=== PATIENT | female | born 1960 | race Caucasian/White ===

== ENCOUNTER 2017-01-18 19:37 | Inpatient (IN) | payer MEDICAID ==
[2017-01-18 21:20] LABS: RBC URINE 1 /hpf (0-3); URINE BILIRUBIN NEGATIVE (NEGATIVE); URINE BLOOD NEGATIVE (NEGATIVE); URINE COLOR Yellow (YELLOW); URINE GLUCOSE (UA) NORMAL (Normal); URINE KETONE NEGATIVE (NEGATIVE); URINE LEUKOCYTE ESTERASE 1+ Leu/uL (Negative); URINE PROTEIN NEGATIVE (NEGATIVE); URINE UROBILINOGEN NORMAL mg/dL (0.2-1.0); WBC URINE 8 /hpf (0-5)
[2017-01-18 22:50] LABS: BASO # 0.1 K/uL (0.0-0.2); BASO % 0.9 % (0.0-2.0); EOS # 0.4 K/uL (0.0-0.7); EOS % 5.4 % (0.0-4.0); HEMATOCRIT 37.3 % (34.0-47.0); LYMPH # 3.9 K/uL (1.0-4.3); LYMPH % 52.8 % (20.0-40.0); MEAN CELL VOLUME 92.6 fL (81.0-99.0); MEAN CORPUSCULAR HEMOGLOBIN 30.8 pg (27.0-31.0); MEAN CORPUSCULAR HGB CONC 33.2 g/dL (33.0-37.0); MEAN PLATELET VOLUME 8.2 fL (7.2-11.7); MONO # 0.7 K/uL (0.0-0.8); MONO % 9.9 % (0.0-10.0); WHITE BLOOD COUNT 7.4 K/uL (4.8-10.8)
[2017-01-18 23:06] LABS: CHLORIDE 99 mmol/L (98-107)
[2017-01-18 23:07] LABS: POTASSIUM 3.8 mmol/L (3.6-5.2); SODIUM 141 mmol/L (132-148)
[2017-01-18 23:09] LABS: ALB/GLOB RATIO 1.4 (1.0-2.1); ALKALINE PHOSPHATASE 56 U/L (38-126); ALT/SGPT 57 U/L (9-52); AST/SGOT 49 U/L (14-36); BILIRUBIN,TOTAL 0.3 mg/dL (0.2-1.3); BLOOD UREA NITROGEN 17 mg/dL (7-17); CARBON DIOXIDE 27 mmol/L (22-30); GFR AFRICAN-AMERICAN > 60; GLUCOSE,RANDOM 156 mg/dL (65-105); TOTAL PROTEIN 7.9 g/dL (6.3-8.3)
[2017-01-18 23:10] LABS: ALCOHOL SERUM < 10 mg/dl (0-10)
--- NOTE | 2017-01-18 23:56 | C.PDOC ---
History Of Present Illness 56 year old patient presents to the ED for detox from Percocet. Patient is pre- screened. Patient admits to last use being prior to arrival. Patient denies any chest pain, shortness of breath, vomiting, abdominal pain, suicidal or homicidal ideation. Time Seen by Provider: 01/18/17 22:22 Chief Complaint (Nursing): Substance Abuse History Per: Patient History/Exam Limitations: other Onset/Duration Of Symptoms: Other Suicide/Self Injury Attempted (Context): None Modifying Factor(s): Narcotics Severity: None Pain Scale Rating Of: 0 Recent travel outside of the [place]: No Past Medical History Reviewed: Historical Data, Nursing Documentation, Vital Signs Vital Signs: Last Vital Signs Temp 98 F 01/19/17 08:37 Pulse 95 H 01/19/17 08:37 Resp 18 01/19/17 08:37 BP 107/74 01/19/17 08:37 Pulse Ox 95 01/19/17 08:37 - Medical History PMH: Anxiety, Hypothyroidism - [facility] Procedures DETOXIFICATION SERVICES FOR SUBSTANCE ABUSE TREATMENT (01/18/17) GROUP TOEING STOCKINGS FOR SUBSTANCE ABUSE TREATMENT, PSYCHOEDUCATION (01/18/17) GROUP PSYCHOTHERAPY (01/18/17) MEDICATION MANAGEMENT (01/18/17) Family History: States: Unknown Family Hx - Social History Hx Alcohol Use: No Hx Substance Use: Yes - Immunization History Hx Tetanus Toxoid Vaccination: No Hx Influenza Vaccination: No Hx Pneumococcal Vaccination: No Review Of Systems Except As Marked, All Systems Reviewed And Found Negative. Cardiovascular: Negative for: Chest Pain Respiratory: Negative for: Shortness of Breath Gastrointestinal: Negative for: Vomiting, Abdominal Pain Psych: Negative for: Suicidal ideation Physical Exam - Physical Exam Appears: Non-toxic, No Acute Distress Skin: Warm, Dry Head: Atraumatic, Normacephalic Neck: Normal ROM, Supple Chest: Symmetrical Cardiovascular: Rhythm Regular Respiratory: Normal Breath Sounds, No Rales, No Rhonchi, No Wheezing Gastrointestinal/Abdominal: Soft, No Tenderness Back: Normal Inspection, No CVA Tenderness Extremity: Normal ROM ED Course And Treatment - Laboratory Results Result Diagrams: 01/18/17 22:40 01/18/17 22:40 O2 Sat by Pulse Oximetry: 98 (RA) Pulse Ox Interpretation: Normal Progress Note: Plan: -Labs Medical Decision Making Medical Decision Making: Pt medically stable for detox evaluation / admission Disposition - Disposition Disposition: HOSPITALIZED Disposition Time: 23:54 Condition: GOOD - Clinical Impression Clinical Impression: Drug dependence - Scribe Statement The provider has reviewed the documentation as recorded by the Scribe Coral Hyde Provider Attestation: All medical record entries made by the Scribe were at my direction and personally dictated by me. I have reviewed the chart and agree that the record accurately reflects my personal performance of the history, physical exam, medical decision making, and the department course for this patient. I have also personally directed, reviewed, and agree with the discharge instructions and disposition.
[2017-01-19 06:33] VITALS: RESP 18
[2017-01-19 08:38] VITALS: BP 107/74; PULSE 95; TEMP 98
[2017-01-19] MEDS ORDERED: Levothyroxine 50 MCG TAB PO SCH ×2 (10:00→10:35)
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
--- NOTE | 2017-01-19 17:38 | PCM.PYCHDC ---
Mental Status Examination - Mental Status Examination Orientation: Person, Place, Situation, Time Memory: Intact Mood: Anxious Affect: Constricted Speech: Appropriate Attention: WNL Concentration: WNL Association: WNL Fund of Knowledge: WNL Formal Thought Process: No Impairment Suicidal Ideation: No Current Homicidal Ideation?: No Discharge Summary - Discharge Note Reason for Hospitalization: Opiate detox Psychiatric History (includes Medical, Family, Personal Hx): Panic attacks, used xanax, no admissions and no lg. Consultations:: List each consultation separately and include: 1. Reason for request. 2. Findings. 3. Follow-up Summary of Hospital Course include:: 1. Description of specific treatment plan utilized for patients during their course of treatmen. 2. Summarize the time- course for resolution of acute symptoms and/or regressed behaviors. 3. Describe issues identified and worked on during hospitalization. 4. Describe medication utilized. 5. Describe medical problems identified and treated. 6. Reassessment of suicide risk Summary of Hospital Course: She came and immediately "hated" the unit and claimed she can only stay 1-2 days. She was irate (very), entitled, accusatory, belittling and demanding. She snapped when someone asked a question twice and then she demanded taht she be dc 'ed. Risks of leaving AMA, incl. relapse, OD and even discussed and she understood but still left. She will go back to her psychiatrist and therapist at [facility], even though she also accused them of not helping (and overall drs by making her addicted to percocet and xanax). Had low insight and likely only came b/c of 's pressure. - Final Diagnosis (DSM 5) Condition upon Discharge: GOOD DSM 5: Opioid withdrawal Opioid use d/o - severe Sedative hypnotic use d/o - moderate Personality d/o - unspecified r/o borderline PD Panic d/o Disposition: AGAINST MEDICAL ADVICE Follow-up Treatment Plan: Return to ER if lg/homi or wdw Consider suboxone detox and/or maintenance See psychiatrist and therapist as soon as possible - Smoking Cessation Smoking Cessation Medication prescribed: No - Antipsychotic Medications Pt discharged on 2 or more routine antipsychotic medications: No
[2017-01-21] MEDS ORDERED: Influenza Virus Vaccine 45 mcg/0.5 ml Syr IM ONE (10:00)
[2017-01-21] MEDS ORDERED: Pneumococcal 23-Valent Vaccine IM ONE (10:00)
[2017-01-24 10:27] VITALS: O2SAT 98
== END 2017-01-19 11:45 | disposition left against medical advice (07) | DRG 743 ==
LOC: C.ER 19:37 → C.7D 23:54
PROVIDERS: ADMIT Psychiatry & Neurology Psychiatry; ATTEND Psychiatry & Neurology Psychiatry
PROC: HZ2ZZZZ Detoxification Services for Substance Abuse Treatment (ICD-10-PCS; principal; 2017-01-18)
PROC: GZ3ZZZZ Medication Management (ICD-10-PCS; 2017-01-18)
PROC: HZ46ZZZ Group Counseling for Substance Abuse Treatment, Psychoeducation (ICD-10-PCS; 2017-01-18)
PROC: GZHZZZZ Group Psychotherapy (ICD-10-PCS; 2017-01-18)
DX: F11.23 Opioid dependence with withdrawal (principal); E11.40 Type 2 diabetes mellitus with diabetic neuropathy, unspecified; M32.9 Systemic lupus erythematosus, unspecified; F13.10 Sedative, hypnotic or anxiolytic abuse, uncomplicated; F60.81 Narcissistic personality disorder; F41.0 Panic disorder [episodic paroxysmal anxiety]; E03.9 Hypothyroidism, unspecified